=== PATIENT | female | born 1945 | race Caucasian/White ===

== ENCOUNTER → 2017-01-11 | Outpatient (CLI) | payer OTHER, BC ==
[2017-01-11 12:29] LABS: ALT/SGPT 36 U/L (12-78); AST/SGOT 32 U/L (15-37); BLOOD UREA NITROGEN 15 mg/dl (7-18); BUN/CREATININE RATIO 25.5 (10-20); CALCIUM 9.4 mg/dl (8.5-10.1); CARBON DIOXIDE 29 mmol/L (21-32); CHLORIDE 96 mmol/L (98-107); GLUCOSE 103 mg/dl (70-99); SODIUM 131 mmol/L (136-145)
[2017-01-11 12:40] LABS: ALKALINE PHOSPHATASE 99 U/L (45-117)
[2017-01-11 13:16] LABS: RATIO 138.6 mcg/mg (0-30.0)
--- NOTE | 2017-01-24 13:44 | CODING QUERY MEDICAL NECESSITY ---
CQSUPPORTING DIAGNOSIS NEEDED A supporting diagnosis is required for the test/procedure performed on this patient in order for us to be reimbursed by the patient's insurance. Please provide a supporting diagnosis for the following test/procedure listed below next to the test name along with your signature. *If there is no additional diagnosis for this patient that would support the following test/procedure please document that below next to the test/procedure. Test(s)/Procedure(s) that require a supporting diagnosis: DOS 01/11/17 VITAMIN D VITAMIN B12 Provider Signature: Date: Thank you Lillie Vargas [facility] Information Management Once completed, please kindly fax back to [phone] For questions please call [phone]
== END | disposition home or self-care (01) ==
LOC: C.LAB1850 10:56
PROVIDERS: ATTEND Internal Medicine Endocrinology, Diabetes & Metabolism
DX: R63.4 Abnormal weight loss (principal); M65.80 Other synovitis and tenosynovitis, unspecified site; E11.9 Type 2 diabetes mellitus without complications; R80.9 Proteinuria, unspecified